=== PATIENT | female | born 1990 | race American Indian/Alaskan Native ===

== ENCOUNTER 2016-05-08 20:14 | Emergency (ER) | payer SELFPAY ==
[2016-05-08 23:46] VITALS: BP 128/81
--- NOTE | 2016-05-09 02:04 | Emergency Department Report ---
- General Chief complaint: Skin/Abscess/Foreign Body Stated complaint: CYST Time Seen by Provider: 05/09/16 01:03 Source: patient Mode of arrival: Ambulatory Limitations: No Limitations - History of Present Illness Initial comments: 26-year-old -[place] female comes in today for an abscess to her right buttock and right suprapubic area. Patient reports that she has a history of boils in these lasts to have been here for greater than 2 months. She does admit that they're very painful and at times would drain. Patient denies any fever chills or nausea no vomiting she has taken Tylenol without relief. complaint: abscess/boil -: month(s) (2) Location: buttocks Severity scale (0 -10): 10 Quality: burning, sharp Consistency: constant Improves with: none Worsens with: palpation Context: none Associated symptoms: denies other symptoms Treatments Prior to Arrival: NSAID - Related Data Previous Rx's Medication Instructions Recorded Last Taken Type Acetaminophen/Codeine [Tylenol #3] 1 tab PO Q6H PRN #12 tab 07/01/14 Unknown Rx Cephalexin [Keflex] 500 mg PO QID #40 capsule 05/09/16 Unknown Rx Ibuprofen [Motrin 800 MG tab] 800 mg PO Q8H PRN #30 tablet 05/09/16 Unknown Rx Allergies Allergy/AdvReac Type Severity Reaction Status Date / Time No Known Allergies Allergy Verified 07/01/14 09:20 Abscess Boil HPI - HPI Chief Complaint: Skin/Abscess/Foreign Body Stated Complaint: CYST Time Seen by Provider: 05/09/16 01:03 Home Medications: Previous Rx's Medication Instructions Recorded Last Taken Type Acetaminophen/Codeine [Tylenol #3] 1 tab PO Q6H PRN #12 tab 07/01/14 Unknown Rx Cephalexin [Keflex] 500 mg PO QID #40 capsule 05/09/16 Unknown Rx Ibuprofen [Motrin 800 MG tab] 800 mg PO Q8H PRN #30 tablet 05/09/16 Unknown Rx Allergies/Adverse Reactions: Allergies Allergy/AdvReac Type Severity Reaction Status Date / Time No Known Allergies Allergy Verified 07/01/14 09:20 ED Review of Systems ROS: Stated complaint: CYST Other details as noted in HPI Comment: All other systems reviewed and negative Skin: lesions ED Past Medical Hx - Past Medical History Previous Medical History?: Yes Hx Headaches / Migraines: Yes Additional medical history: bronchitis - Surgical History Past Surgical History?: Yes Additional Surgical History: x1 - Social History Smoking Status: Never Smoker Substance Use Type: None - Medications Home Medications: Home Medications Medication Instructions Recorded Confirmed Last Taken Type Acetaminophen/Codeine [Tylenol #3] 1 tab PO Q6H PRN #12 tab 07/01/14 Unknown Rx Cephalexin [Keflex] 500 mg PO QID #40 capsule 05/09/16 Unknown Rx Ibuprofen [Motrin 800 MG tab] 800 mg PO Q8H PRN #30 tablet 05/09/16 Unknown Rx ED Physical Exam - General Limitations: No Limitations General appearance: alert, in no apparent distress - Head Head exam: Present: atraumatic - Eye Eye exam: Present: normal appearance, PERRL, EOMI - ENT ENT exam: Present: normal exam, mucous membranes moist - Neurological Exam Neurological exam: Present: alert, oriented X3 - Skin Skin exam: Present: warm, dry, intact, other (1 cm meter by half a centimeter erythematous hyperpigmented tenderness to palpate lesion on the pubic symphysis , ) - Expanded Skin Exam Expanded Distribution of rash: genitals Description of rash: Present: size (1 cm x 0.5 cm suprapubic tenderness), tenderness, indurated. Absent: discharge ED Course Vital Signs 05/08/16 05/08/16 21:34 23:45 Temperature 98.1 F 97.9 F Pulse Rate 67 62 Respiratory 18 16 Rate Blood Pressure 126/77 Blood Pressure 128/81 [Right] O2 Sat by Pulse 100 100 Oximetry ED Medical Decision Making - Medical Decision Making Gas with patient that we would need to place her on Keflex antibiotic encouraged her to do warm compresses to the boil and to return in 48 hours for his to reevaluate her. He verbalized understanding Critical care attestation.: If time is entered above; I have spent that time in minutes in the direct care of this critically ill patient, excluding procedure time. ED Disposition Clinical Impression: Boil of buttock, Boil, groin Disposition: DISCHARGED TO HOME OR SELFCARE Is pt being admited?: No Does the pt Need Aspirin: No Condition: Stable Instructions: Furunculosis and Carbunculosis (ED), Abscess (ED) Additional Instructions: Please take pain medication and antibiotics as prescribed. Very importantly to follow up within 48 hours for reevaluation of your boils. Prescriptions: Cephalexin [Keflex] 500 mg PO QID #40 capsule Ibuprofen [Motrin 800 MG tab] 800 mg PO Q8H PRN #30 tablet PRN Reason: Pain Referrals: PRIMARY CARE,MD [Primary Care Provider] - 3-5 Days Forms: Work/School Release Form(ED)
== END 2016-05-09 02:35 | disposition home or self-care (01) ==
LOC: ED 20:14
DX: L02.32 Furuncle of buttock (principal); L02.224 Furuncle of groin; G43.909 Migraine, unspecified, not intractable, without status migrainosus
CPT/HCPCS: 99282